=== PATIENT | female | born 1990 | race Two or more races ===

== ENCOUNTER 2021-11-03 09:40 | Outpatient (CLI) | payer OTHER | END 2021-11-03 10:25 | disposition home or self-care (01) | LOC: NST 09:40 | PROVIDERS: ATTEND Obstetrics & Gynecology Maternal & Fetal Medicine | DX: Z34.83 Encounter for supervision of other normal pregnancy, third trimester (principal) ==

== ENCOUNTER 2021-11-25 15:30 | Inpatient (IN) | payer OTHER ==
[~2021-11-25] VITALS: Ht 154.9 cm; Wt 2.7 kg
[2021-12-13] MEDS ORDERED: PRENATAL TABLE1 EAC1 PO (13:52)
[2021-12-13] MEDS ORDERED: LEVALBUTER0.63 MG/3 (14:22)
[2021-12-13] MEDS ORDERED: MONTELUKAST SOD10 MG (14:26)
[2021-12-13] MEDS ORDERED: CLONAZEPAM1 MG (14:26)
[2021-12-13] MEDS ORDERED: FAMOTIDINE20 MG (14:26)
[2021-12-17] MEDS ORDERED: OXYC1TAB9 PO (11:13)
[2021-12-17] MEDS ORDERED: KETO10TA2 PO (11:13)
== END 2021-12-17 14:42 | disposition home or self-care (01) | DRG 788 ==
LOC: OB/GYN 12-11 15:30 → LDR 12-13 13:22 → OB/GYN 12-14 10:51
PROVIDERS: ADMIT Obstetrics & Gynecology; ATTEND Obstetrics & Gynecology
PROC: 10D00Z1 Extraction of Products of Conception, Low, Open Approach (ICD-10-PCS; principal; 2021-12-13)
PROC: 4A1HXCZ Monitoring of Products of Conception, Cardiac Rate, External Approach (ICD-10-PCS; 2021-12-13)
DX: O76 Abnormality in fetal heart rate and rhythm complicating labor and delivery (principal); Z20.822 Contact with and (suspected) exposure to COVID-19; Z3A.40 40 weeks gestation of pregnancy; Z37.0 Single live birth

== ENCOUNTER 2021-12-02 14:14 | Outpatient (CLI) | payer OTHER | END 2021-12-02 15:06 | disposition home or self-care (01) | LOC: NST 14:14 | PROVIDERS: ATTEND Obstetrics & Gynecology Maternal & Fetal Medicine | DX: Z34.83 Encounter for supervision of other normal pregnancy, third trimester (principal) ==

== ENCOUNTER 2021-12-06 11:08 | Outpatient (CLI) | payer OTHER | END 2021-12-06 11:53 | disposition home or self-care (01) | LOC: NST 11:08 | PROVIDERS: ATTEND Obstetrics & Gynecology | DX: Z34.83 Encounter for supervision of other normal pregnancy, third trimester (principal) ==